=== PATIENT | female | born 1930 | race Caucasian/White ===

== ENCOUNTER 2017-07-29 17:49 | Emergency (ER) | payer MEDICARE, OTHER ==
[~2017-07-29] VITALS: Ht 160 cm; Wt 38.6 kg
[2017-07-29 18:53] LABS: BASOPHILS % 0.4 % (0.0-1.0); EOSINOPHILS # (AUTO) 0.3 (0.0-0.4); EOSINOPHILS % 3.1 % (0.0-6.0); HEMATOCRIT 37.7 % (34.2-44.1); HEMOGLOBIN 12.3 g/dL (12.0-16.0); LYMPHOCYTES # (AUTO) 2.2 (1.0-3.2); LYMPHOCYTES % 20.6 % (18.0-39.1); MEAN CORPUSCULAR HEMOGLOBIN 27.2 pg (28-32); MEAN CORPUSCULAR HGB CONC 32.6 g/dL (31-35); MEAN CORPUSCULAR VOLUME 83.2 fL (81-99); MONOCYTES # (AUTO) 0.6 (0.2-0.8); MONOCYTES % 5.9 % (4.4-11.3); NEUTROPHILS # (AUTO) 7.3 (2.1-6.9); NEUTROPHILS % 69.7 % (38.7-80.0); PLATELET COUNT 225 x10e3/uL (140-360); RED BLOOD COUNT 4.53 x10e6/uL (3.6-5.1); RED CELL DISTRIBUTION WIDTH 15.4 % (11.7-14.4)
[2017-07-29 18:58] LABS: INR 1.1; PROTHROMBIN TIME 13.4 seconds (11.9-14.5)
[2017-07-29 18:59] LABS: PARTIAL THROMBOPLASTIN TIME 32.3 seconds (23.8-35.5)
[2017-07-29] MEDS ORDERED: ASPIRIN 81 MG CHEW TAB PO ONE (19:00)
[2017-07-29 19:08] LABS: ALANINE AMINOTRANSFERASE 10 IU/L (0-55); ALBUMIN 2.8 g/dL (3.5-5.0); ALBUMIN/GLOBULIN RATIO 0.6 (0.8-2.0); ALKALINE PHOSPHATASE 84 IU/L (40-150); ANION GAP 13.5 mmol/L (8-16); BLOOD UREA NITROGEN 17 mg/dL (7-26); BUN/CREATININE RATIO 25 (6-25); CALCIUM 8.8 mg/dL (8.4-10.2); CARBON DIOXIDE 26 mmol/L (22-29); CHLORIDE 99 mmol/L (98-107); CREATINE KINASE 30 IU/L (29-168); CREATININE, SERUM 0.68 mg/dL (0.57-1.11); EST GLOMERULAR FILTRATION RATE > 60 ML/MIN (60-); GLUCOSE 108 mg/dL (74-118); POTASSIUM 3.5 mmol/L (3.5-5.1); SODIUM 135 mmol/L (136-145)
--- NOTE | 2017-07-29 19:21 | Diagnostic Imaging Report ---
A single frontal view of the chest. HISTORY: Chest pain COMPARISON: None available. DISCUSSION: Portable technique, limits sensitivity of the exam. Overlying monitoring leads and artifacts. Tubes/Lines: None Lungs and pleura: The lungs are hyperexpanded. Prominent architectural distortion, compatible with scarring, left greater than right, most notably the lung apices. Multiple scattered calcified granulomas, also left greater than right. Bustos confluent opacity at the right lung base, peripheral greater than central. No definite pleural effusion or pneumothorax is identified. Heart and mediastinum: The cardiac silhouette is partially obscured. Bones: No acute osseous lesion is identified, given this limited exam. IMPRESSION: 1. Findings compatible with chronic obstructive lung disease and severe bilateral scarring. 2. More confluent opacity at the right lung base, concerning for superimposed pneumonia or aspiration in the appropriate setting. 3. Recommend follow-up routine PA and lateral chest radiographs in 6-8 weeks to assess for resolution of the right basilar opacity to exclude other underlying pathology, including malignancy. Signed by: Dr. Devante Villanueva D.O., M.M.M. on 07/29/2017 7:18 PM
--- NOTE | 2017-07-29 20:28 | Diagnostic Imaging Report ---
CT CHEST WITHOUT CONTRAST HISTORY: Abnormal chest x-ray COMPARISON: Chest radiograph July 29, 2017. TECHNIQUE: CT scan of the chest WITHOUT intravenous contrast, using standard protocol. The chest was scanned utilizing a multidetector helical scanner from the apex to the level of the adrenal glands. Coronal and sagittal reformats are provided. IV CONTRAST: None, which limits evaluation of the vascular structures, mediastinum and soft tissues. RADIATION DOSE: Total DLP: 185.38 mGy*cm COMPLICATIONS: None FINDINGS: Lines/tubes: None. Lungs and Airways: The lungs are hyperinflated. Multifocal scarring, most notably at the lung apices with fibrocalcific changes. Mild multifocal traction bronchiectasis. Bilateral calcified granulomas. Diffuse bronchial wall thickening. Prominent peripheral interstitial markings. At the periphery of the right lower lobe, abutting the pleural surface a 4 cm (AP) x 4 cm (ML) x 4.6 cm (CC) soft tissue density. Pleura: Small right pleural effusion. Heart and mediastinum: The thyroid gland is normal. The heart is normal in size. Small volume of pericardial fluid. Abdomen: Limited nonenhanced views of the upper abdomen. Lymph nodes: Multiple bilateral hilar and mediastinal partially calcified lymph nodes. Vessels: Scattered atherosclerotic vascular calcifications, including the coronary arteries. Bones: Diffusely decreased mineralization of the osseous structures limits bone detail. Accentuation of the thoracic kyphosis. Severe degenerative changes at L1-2. An incompletely healed fracture involving the anterior aspect of the right scapula. Soft tissues: Otherwise, unremarkable. IMPRESSION: 1. A peripheral right lower lobe mass abutting the pleural surface. Although this may reflect an evolving infectious or inflammatory process, this is worrisome for the possibility of malignancy. Advised either following until resolution or consider tissue sampling for definitive diagnosis. 2. Chronic obstructive lung disease and prominent multifocal scarring. 3. Sequela of remote granulomatous disease. Signed by: Dr. Devante Villanueva D.O., M.M.M. on 07/29/2017 8:24 PM
[2017-07-29 21:04] VITALS: BP 166/89
== END 2017-07-29 21:06 | disposition home or self-care (01) ==
LOC: ER 17:49
DX: R42 Dizziness and giddiness (principal); R11.2 Nausea with vomiting, unspecified; F17.210 Nicotine dependence, cigarettes, uncomplicated
CPT/HCPCS: 36415; 71045; 71250; 80053; 82550; 82553; 83880; 84484; 85025; 85610; 85730; 93005; 99284

== ENCOUNTER → 2018-05-19 | Outpatient (CLI) | payer MEDICARE, OTHER ==
[~2018-05-19] MED LIST: IOPAMIDOL 370 MG/ML 200 ML INFUS..BTL INJ ONE; SODIUM CHLORIDE 0.9% 50ML 50 ML ONE
[2018-05-19 13:35] LABS: BLOOD UREA NITROGEN 23 mg/dL (7-26); BUN/CREATININE RATIO 26 (6-25); CREATININE, SERUM 0.88 mg/dL (0.57-1.11); EST GLOMERULAR FILTRATION RATE > 60 ML/MIN (60-)
--- NOTE | 2018-05-19 17:30 | Diagnostic Imaging Report ---
CT CHEST WITH CONTRAST HISTORY: Right lower lobe mass. COMPARISON: CT Chest 07/29/2017. TECHNIQUE: CT scan of the chest WITHOUT intravenous contrast, using standard protocol. The chest was scanned utilizing a multidetector helical scanner from the apex to the level of the adrenal glands. Coronal and sagittal reformats are provided. Dose modulation, iterative reconstruction, and/or weight based adjustment of the mA/kV was utilized to reduce the radiation dose to as low as reasonably achievable. IV CONTRAST: 100 cc of Isovue 370 RADIATION DOSE: Total DLP: 201.8 mGy*cm COMPLICATIONS: None FINDINGS: Lines/tubes: None. Lungs and Airways: The lungs are hyperinflated. Multifocal scarring, most pronounced at the lung apices with biapical pleural-parenchymal opacity. There is multifocal traction bronchiectasis with peripheral interstitial opacities, as before. Bilateral calcified granulomas are again noted. There is diffuse bronchial wall thickening. The previously noted consolidative mass like opacity within the right lower lobe has resolved. There is scarring with traction bronchiectasis at the right lung base. There there are mild tree-in-bud and patchy opacities present within the dependent right upper lobe on series 3, image 47. Pleura: Small right pleural effusion. No evidence of pneumothorax. Heart and mediastinum: The thyroid gland is normal. The heart is normal in size. No pericardial effusion. Again noted are multiple hilar and mediastinal calcified lymph nodes. Atherosclerotic calcifications of the coronary arteries and thoracic aorta. Some fluid is noted within the mid esophagus. Abdomen: Limited nonenhanced views of the upper abdomen. Bones/Soft Tissues: Diffuse osteopenia. There is thoracic kyphosis. No acute osseous abnormality or suspicious lytic or blastic lesions. Interval healing of right scapular fracture. IMPRESSION: Interval resolution of right lower lobe mass like opacity, consistent with infectious process. In this location, there are now linear opacities and traction bronchiectasis, consistent with scarring. Tree-in-bud and patchy opacities in the dependent right upper lobe, which could represent small focus of aspiration in the appropriate clinical context. Fluid is noted in the mid esophagus, correlation with any history of aspiration is suggested. Chronic obstructive lung disease and prominent multifocal scarring, as before. Sequela of prior granulomatous disease. Signed by: Dr. Moni Pinzon MD on 05/19/2018 5:26 PM
== END ==
LOC: CT 12:30
PROVIDERS: ATTEND Internal Medicine Critical Care Medicine
DX: R91.8 Other nonspecific abnormal finding of lung field (principal)
CPT/HCPCS: 36415; 71260; 82565; 84520; Q9967

== ENCOUNTER → 2018-12-08 | Outpatient (CLI) | payer MEDICARE, OTHER ==
[~2018-12-08] MED LIST changes: +HYDROCODONE/APAP 5MG-325MG TAB ONE; -IOPAMIDOL 370 MG/ML 200 ML INFUS..BTL INJ ONE; -SODIUM CHLORIDE 0.9% 50ML 50 ML ONE
--- NOTE | 2018-12-08 17:17 | Diagnostic Imaging Report ---
EXAM: CT Chest WITHOUT intravenous contrast 12/08/2018 12:53 PM INDICATION: Pneumonia, pulmonary nodules COMPARISON: Chest CT of 05/19/2018 TECHNIQUE: Chest was scanned utilizing a multidetector helical scanner from the lung apex through the level of the adrenal glands without administration of IV contrast. Coronal and sagittal reformations were obtained. Routine protocol was performed. IV CONTRAST: None RADIATION DOSE: Total DLP: 152.1 mGy*cm. Dose modulation, iterative reconstruction, and/or weight based adjustment of the mA/kV was utilized to reduce the radiation dose to as low as reasonably achievable. COMPLICATIONS: None FINDINGS: LINES/ TUBES: None. LUNGS AND AIRWAYS: The central airways are patent. The lungs are hyperinflated. Biapical pleural parenchymal thickening/scarring. Bilateral calcified granulomas appear unchanged. Areas of traction bronchiectasis in the left upper lobe and right middle lobe and right upper lobe appear unchanged. No new focal consolidation. The right upper lobe nodular opacity previously measuring 1.7 cm now measures 1.4 cm, likely representing a resolving infectious process. New 8 mm nodule in the posterior left lower lobe (series 3 image 40) . PLEURA: The pleural spaces are clear. HEART AND MEDIASTINUM: The thyroid gland appears unremarkable. No supraclavicular, axillary or subpectoral lymphadenopathy. Multiple prominent calcified and noncalcified mediastinal and bilateral hilar lymph nodes not meeting size criteria for lymphadenopathy. The heart is stable in size. No pericardial effusion. Atherosclerotic calcifications involve the coronary arteries and thoracic aorta and major branches. UPPER ABDOMEN: Limited non-contrast views of the upper abdomen show no abnormality within the partially visualized liver, spleen, pancreas, or kidneys. BONES: Diffuse osteopenia. Mild degenerative changes of the visualized spine. No suspicious lytic or blastic lesions. SOFT TISSUES: Unremarkable. IMPRESSION: Hyperinflated lungs with redemonstration of waxing and waning patchy bilateral opacities. A right upper lobe nodular opacity previously measuring 1.7 cm now measures 1.4 cm and may represent resolving infectious process. A new 8 mm nodule in the posterior left lower lobe may also represent part of this likely and waning process, although follow-up at 12 months is recommended to assess for stability. Signed by: Celine Arrington MD on 12/08/2018 5:14 PM
== END ==
LOC: CT 12:46
PROVIDERS: ATTEND Internal Medicine Critical Care Medicine
DX: R91.8 Other nonspecific abnormal finding of lung field (principal)
CPT/HCPCS: 71250